=== PATIENT | female | born 1980 | race African-American/Black ===

== ENCOUNTER 2020-02-11 18:13 | Emergency (ER) | payer OTHER ==
[~2020-02-11] VITALS: Ht 165.1 cm; Wt 72.6 kg
[~2020-02-11 18:13] MED LIST: IBUPROFEN600 MG ORAL; NKM
[2020-02-11 18:29] VITALS: BP 110/64
[2020-02-11] MEDS ORDERED: Ketorolac 30mg Inj IM ONE (19:00)
--- NOTE | 2020-02-11 19:01 | Emergency Room Report ---
History of Present Illness General Chief Complaint: Skin Rash/Abscess Source: Patient Present Illness HPI 40-year-old female presents to the emergency department complaining of having multiple infected boils that have been appearing near her ears or in her groin area intermittently x1 week. Patient reports some resolved on their own. She describes a hard bump that does swell over a period of a few days and becomes erythematous. She denies significant past medical history. She denies suspicion of STI. Pt. denies fevers, chills or swollen tender lymph nodes. Denies lesions/rashes elsewhere on the body. Denies new medications or body washes or creams. Denies swelling of the lips, tongue , throat or airway. Denies wheezing, or shortness of breath. Denies recent travel, recent illness or ill contacts. denies blisters, oral lesions, or sloughing of the skin. Pt. c/o she keeps getting recurrent boils. She denies or suspicion of . Allergies: Coded Allergies: PENICILLINS (Verified Allergy, Unknown, 04/20/18) COVID-19 Screening Contact w/high risk pt: No Experienced COVID-19 symptoms?: No COVID-19 Testing performed HIGH PRESSURE FIRER: No Patient History Past Medical History: see triage record Past Surgical History: none Pertinent Family History: none Last Menstrual Period: na Now: No Reviewed Nursing Documentation: PMH: Agreed; PSxH: Agreed Nursing Documentation-PMH Past Medical History: No History, Except For Review of Systems All Other Systems: negative except mentioned in HPI Physical Exam Vital Signs Date Time Temp Pulse Resp B/P (MAP) Pulse Ox O2 Delivery O2 Flow Rate FiO2 02/11/20 18:23 97.7 73 16 110/64 (79) 98 Sp02 EP Interpretation: reviewed, normal General Appearance: no apparent distress, alert, GCS 15, non-toxic Head: normocephalic, atraumatic Eyes: bilateral eye normal inspection, bilateral eye PERRL ENT: hearing grossly normal, normal voice, other - presence of retained decaying root of the left lower molars 18& 19, no palpable fluctuance of the gum line. There is some mild visible erythema. Pt. has resolved ST folliculitis that is less than 0.5cm in diameter behind the left ear. Neck: full range of motion, no meningismus, no bony tend Respiratory: chest non-tender, lungs clear, normal breath sounds, speaking full sentences Cardiovascular #1: regular rate, rhythm, no edema Gastrointestinal: normal bowel sounds, non tender, soft Musculoskeletal: normal range of motion, gait/station normal, non-tender Neurologic: alert, motor strength/tone normal, oriented x3, sensory intact, responsive, speech normal Psychiatric: judgement/insight normal Skin: other - 4 ST abscess which are all less than 0.5cm in diameter and non fluctuant. scattered along the bikini line, no open wounds, no LAD. Lymphatic: no adenopathy Medical Decision Making PA Attestation Dr. Mcallister is my supervising Physician whom patient management has been discussed with. Diagnostic Impression: Primary Impression: Acute folliculitis Additional Impression: Pain, dental ER Course Pt. presents to the ED c/o pain, swelling, and erythema of multiple small bumps behind her ears, and along her bikini line. Denies fevers or chills. On set of groin lesions occurred after shaving. -Pt. also c/o persistent left sided lower dental pain where she had a previously broken tooth. Pt. reports not having a dentist. Ddx considered but are not limited to cellulitis, abscess, cystic acne, necrotizing fasciitis, insect bite. Vital signs: are WNL, pt. is afebrile H&PE are most consistent with folliculitis. and Dental pain in the presence of retained decaying root of the left lower molars. ORDERS: none required at this time, the diagnosis is clinical ED INTERVENTIONS: -Toradol IM DISCHARGE: At this time pt. is stable for d/c to home. Will provide printed patient care instructions, and any necessary prescriptions. Care plan and follow up instructions have been discussed with the patient prior to discharge. Last Vital Signs Date Time Temp Pulse Resp B/P (MAP) Pulse Ox O2 Delivery O2 Flow Rate FiO2 02/11/20 18:29 97.7 16 110/64 98 02/11/20 18:23 73 Disposition: HOME, SELF-CARE Condition: Stable Scripts Mupirocin* (MUPIROCIN*) 22 Gm Oint...g. 1 APPLIC TOPIC THREE TIMES A DAY, #22 GM Prov: Daniela Braxton 02/11/20 Ibuprofen* (MOTRIN*) 600 Mg Tablet 600 MG ORAL THREE TIMES A DAY, #30 TAB Prov: Daniela Braxton 02/11/20 Clindamycin Hcl (CLINDAMYCIN HCL) 300 Mg Capsule 300 MG ORAL FOUR TIMES A DAY for 7 Days, #29 CAP Take two capsules for your initial dose only. Prov: Daniela Braxton 02/11/20 Referrals: [facility]ERRING (PCP) Manuel Smith Comp. [facility] [employer] [facility] [employer] Patient Instructions: Dental Pain, Folliculitis Additional Instructions: Take medications as directed. Follow up with a Dentist in 3-5 days, even if your symptoms have resolved. Follow up with DERMATOLOGY and PCP if recurrence occurs --Please review list of Dental clinics, if you do not already have a Dentist Return sooner to ED if new symptoms occur, or current symptoms become worse. - Please note that this Emergency Department Report was dictated using [employer] and filter chief inspector technology software, occasionally this can lead to erroneous entry secondary to interpretation by the dictation equipment. Daniela Braxton Feb 11, 2020 19:01
[2020-02-11] MEDS ORDERED: IBUPROFEN600 M1 ORAL (19:04)
[2020-02-11] MEDS ORDERED: CLINDAMYCIN HC300 MG ORAL (19:04)
[2020-02-11] MEDS ORDERED: MUPIROCIN22 GM TOPIC (19:04)
[2020-02-11 19:11] VITALS: BP 110/64
== END 2020-02-11 19:14 | disposition home or self-care (01) ==
LOC: EMR 18:40
DX: L73.9 Follicular disorder, unspecified (principal); K08.89 Other specified disorders of teeth and supporting structures; Z88.0 Allergy status to penicillin
CPT/HCPCS: 96372; J1885; Z7502; 99283